=== PATIENT | male | born 2005 | race Caucasian/White ===

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

== ENCOUNTER 2024-01-22 14:30 | Outpatient (RCR) | payer BC, SELFPAY ==
--- NOTE | 2023-12-26 13:22 | HP.PTEVAL_ITS ---
Patient's Visit Information Visit Information Visit Information: MICHELL NOVA is a 18 year old M referred to Physical Therapy by Dr. Higinio Burch MD with a diagnosis of Left Hamstring Strain. Date of Evaluation: 12/26/23 Physical Therapist: Winifred Cosby DPT Visit Plan Frequency: 2x /Week Duration: 4 Weeks Plan: Focus on LE and core strength/stabilization, manual therapy and modalities PRN for left hamstring strain. Initial Tx: cupping, hamstring stretching and isometrics on the hamstring machine Subjective Subjective: Left hamstring strain- playing in a soccer game and he made a turn and tried to sprint and made a couple steps and it tightened up- last weekend. He was not able to keep playing through it. 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 He does not have pain in the hamstring when walking but has pain with increased tension. The pain is located in the middle or closer to the knee. Describes the pain as sharp. Worst: 4/10 Agg: longer strides, going up stairs Eases: stretching, ice Best: 0/10. Sleep: not disturbed. He has not played since. [employer]- will be a [employer]- goes back January 30- fall sport- he has a workout program he is suppose to be doing. He feels that the hamstring is getting better- 50-60%. No summer job. PMHx: left quad, left hamstring, right hamstring, hip flexor- lots of muscle strains. Meds: none Objective Objective: Posture: fair throughout Gait: no deviation noted- no pain with lengthened stride ambulation HR/TR: able without pain Palpation: tender along distal medial hamstring and distal 1/3 hamstring Observation: no bruising Flex: HS: moderate Gastroc: moderate ROM: WNL no pain Strength: Core: fair, Hip: 4+/5 throughout, Knee: Left: Extn: 77 Right: Extn: 88 Left: Flexion: 27 Right Flexion: 46 Balance/Special Test Scores Lower Extremity Functional Score: 64 Goals Goal 1:: Patient will be I with HEP and progression Goal Time Frame: 4-6 Weeks Goal 2:: Patient will run without pain Goal Time Frame: 4-6 Weeks Goal 3:: Patient will have equal strength bilateral Goal Time Frame: 4-6 Weeks Goal 4:: Patient will report 80% improvement Goal Time Frame: 4-6 Weeks Rehabilitation Potential Physical Therapy Diagnosis: Patient presents with a left hamstring strain- he has decreased core and LE strength/stabilization and flex leading to increased pain with ADL's and recreational activities. Rehabilitation Potential: Good Anticipated Interventions Patient/Client Instruction: Educate patient on: Benefits of Fitness Program Therapeutic Exercise to Include: Strength training, Endurance training, Balance training, Coordination, Agility training, Body mechanics, Postural training, Flexibilty training, Gait and locomotor training, Neuromotor development, Passive ROM, Active ROM and Dynamic Lumbar Stabilization Manual Therapy Techniques to Include: Soft tissue mobilization TENS: Yes Other electric stimulation: Yes Cryotherapy (ice pack, ice massage): Yes Thermo therapy (hot pack): Yes Ultrasound (thermal/non thermal): Yes Text: Thank you for the opportunity to evaluate your patient. For Medicare and Medicare HMO plans, please review the plan of care and approve it. It will need to be FAXED BACK to us at [phone] for Medicare purposes. For Medicare only, by signing this I certify the plan of care. Please let me know if there are questions or concerns regarding this plan of care. Physician Signature: Date:
--- NOTE | 2024-01-22 16:03 | HP.PT.NRP ---
Patient Information Patient Information: MICHELL NOVA was seen in my office for initial evaluation on 12/26/23. The following Plan of Care was established for this patient: POC Established Initial Frequency: 2x /Week Initial Duration: 4 Weeks Anticipated Interventions Patient/Client Instruction: Educate patient on: Benefits of Fitness Program Therapeutic Exercise to Include: Strength training, Endurance training, Balance training, Coordination, Agility training, Body mechanics, Postural training, Flexibilty training, Gait and locomotor training, Neuromotor development, Passive ROM, Active ROM and Dynamic Lumbar Stabilization Manual Therapy Techniques to Include: Soft tissue mobilization TENS: Yes Other electric stimulation: Yes Cryotherapy (ice pack, ice massage): Yes Thermo therapy (hot pack): Yes Ultrasound (thermal/non thermal): Yes Last Seen Last Seen: This patient was last seen in our office . Pertinent comments regarding their Physical therapy will appear below: At this point I will be discontinuing this patient from physical therapy. I would be happy to see this patient again in the future if found appropriate by the physician. Thank you! Tony Whatley, PT, ATC Balance/Gait/Functional tests Balance/Special Test Scores Lower Extremity Functional Score: 76
== END 2024-01-22 19:00 | disposition home or self-care (01) ==
LOC: PT 14:30
PROVIDERS: PCP Family Medicine; Referring Provider Family Medicine; Visit Provider Family Medicine
DX: S86.112D Strain of other muscle(s) and tendon(s) of posterior muscle group at lower leg level, left leg, subsequent encounter (principal)
CPT/HCPCS: 97110; 97162; 97530

== ENCOUNTER 2025-06-08 08:52 | Outpatient (CLI) | payer BC, SELFPAY ==
--- NOTE | 2025-06-08 08:53 | RAD_ITS ---
PROCEDURE: KNEE 4 OR MORE VIEWS 06/08/2025 REASON FOR EXAM: RIGHT KNEE SPORTS INJURY TECHNIQUE: Procedure Code: RADKN Modality: DX Procedure: KNEE 4 OR MORE VIEWS FINDINGS: There no acute fractures. There are no dislocations. The joint spaces are well- maintained and the articular surfaces are intact. Bony mineralization is normal. There are no periosteal reactions or aggressive osseous lesions. There are no soft tissue irregularities. RAD/Knee 4 or More Views IMPRESSION: No acute osseous findings. Reading Location: [id number]
--- OUTSIDE RECORDS SUMMARY | 2025-06-08 09:14 | XMS RPT_ITS | CCD ---
Author Organization [facility] Care Team Providers Care Health Director Name Role Phone ANA LILIA, MARILUZ O Unavailable Unavailable REFERRED, SELF Unavailable Unavailable ANA LILIA, MARILUZ O Unavailable Unavailable GASPER HESTER Unavailable Unavailable REFERRED, SELF Unavailable Unavailable ANA LILIA, MARILUZ O Unavailable Unavailable AMANDA GUDELIA Adriana Unavailable Unavailable REFERRED, SELF Unavailable Unavailable ANA LILIA, MARILUZ O Unavailable Unavailable Higinio Burch Referring Unavailable Higinio Burch Attending Unavailable Higinio Burch Primary Care Unavailable Allergies Allergy Classification Reported Allergen(s) Allergy Type Date of Onset Reaction(s) Facility (2 sources) bee venom; Translations: [BEE VENOM] Propensity to adverse reactions to drug (disorder) 7 AOF [facility] Repository Problems Problem Classification Problem Date Documented Da te Episodic/Chronic Sprains and strains (1 source) Strain of muscle, fascia and tendon of the posterior muscle group at thigh level, left thigh, initial encounter; Translations: [Strain of muscle, fascia and tendon of the posterior muscle group at thigh level, left thigh, initial encounter] Onset: 01-23-2024 Episodic Results Test Name Value Interpretation Reference Range Facility Inital Evaluation (1) - PTon 12-26-2023 Inital Evaluation (1) - PT [facility] Physical [facility] [address] [place] [address] / REHABILITATION SERVICES INITIAL EVALUATION MR#: [id number] Acct: [id number] Name: MICHELL NOVA Rep #: [id number] : 2005 18 From: Winifred Cosby DPT Referring Dr.: Dr. Higinio Burch MD Status: REG R CR Insurance: [employer] SELF PAY INSURANCE Patient's Visit Information Visit Information Visit Information: MICHELL NOVA is a 18 year old M referred to Physical Therapy by Dr. Higinio Burch MD with a diagnosis of Left Hamstring Strain. Date of Evaluation: 12/26/23 Physical Therapist: Winifred Cosby DPT Visit Plan Frequency: 2x /Week Duration: 4 Weeks Plan: Focus on LE and core strength/stabilization, manual therapy and modalities PRN for left hamstring strain. Initial Tx: cupping, hamstring stretching and isometrics on the hamstring machine Subjective Subjective: Left hamstring strain- playing in a soccer game and he made a turn and tried to sprint and made a couple steps and it tightened up- last weekend. He was not able to keep playing through it. 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 He does not have pain in the hamstring when walking but has pain with increased tension. The pain is located in the middle or closer to the knee. Describes the pain as sharp. Worst: 4/10 Agg: longer strides, going up stairs Eases: stretching, ice Best: 0/10. Sleep: not disturbed. He has not played since. [employer]- will be a [employer]- goes back January 30- fall sport- he has a workout program he is suppose to be doing. He feels that the hamstring is getting better- 50-60%. No summer job. PMHx: left quad, left hamstring, right hamstring, hip flexor- lots of muscle strains. Meds: none Objective Objective: Posture: fair throughout Gait: no deviation noted- no pain with lengthened stride ambulation HR/TR: able without pain Palpation: tender along distal medial hamstring and distal 1/3 hamstring Observation: no bruising Flex: HS: moderate Gastroc: moderate ROM: WNL no pain Strength: Core: fair, Hip: 4+/5 throughout, Knee: Left: Extn: 77 Right: Extn: 88 Left: Flexion: 27 Right Flexion: 46 Balance/Special Test Scores Lower Extremity Functional Score: 64 Goals Goal 1:: Patient will be I with HEP and progression Goal Time Frame: 4-6 Weeks Goal 2:: Patient will run without pain Goal Time Frame: 4-6 Weeks Goal 3:: Patient will have equal strength bilateral Goal Time Frame: 4-6 Weeks Goal 4:: Patient will report 80% improvement Goal Time Frame: 4-6 Weeks Rehabilitation Potential Physical Therapy Diagnosis: Patient presents with a left hamstring strain- he has decreased core and LE strength/stabilization and flex leading to increased pain with ADL's and recreational activities. Rehabilitation Potential: Good Anticipated Interventions Patient/Client Instruction: Educate patient on: Benefits of Fitness Program Therapeutic Exercise to Include: Strength training, Endurance training, Balance training, Coordination, Agility training, Body mechanics, Postural training, Flexibilty training, Gait and locomotor training, Neuromotor development, Passive ROM, Active ROM and Dynamic Lumbar Stabilization Manual Therapy Techniques to Include: Soft tissue mobilization TENS: Yes Other electric stimulation: Yes Cryotherapy (ice pack, ice massage): Yes Thermo therapy (hot pack): Yes Ultrasound (thermal/non thermal): Yes Text: Thank you for the opportunity to evaluate your patient. For Medicare and Medicare HMO plans, please review the plan of care and approve it. It will need to be FAXED BACK to us at [phone] for Medicare purposes. For Medicare only, by signing this I certify the plan of care. Please let me know if there are questions or concerns regarding this plan of care. Physician Signature: D ate: 12/26/23 1322 CC: Dr. Higinio Burch MD ELR Signed Normal [facility] Blood hemoglobin measurement (mass/volume)on 01-17-2022 Hemoglobin (Bld) [Mass/Vol] 15.2 g/dL 13.0-16.5 [facility] Work Phone: Hematocrit Auto (Bld) [Volum e fraction]on 01-17-2022 Hematocrit (Bld) [Volume fraction] 45.6 % 36-47 [facility] Work Phone: Hemoglobin S Solubility test Ql (Bld)on 01-17-2022 Hemoglobin S Ql (Bld) Negative Negative [facility] Work Phone: Comment on above: Since a variety of c onditions and other abnormalhemoglobins in addition to Hemoglobin S may give false-positive results, positive Hemoglobin Solubility testsshould be confirmed by hemoglobin fractionation testing.Performed at: [address] [id number] Director: Yfn Wheeler PhD, Phone: [phone] Progress Noteon 02-11-2018 Senior Compliance Officer Authentication Interface Message Text Patient ID: Michell Nova is a 12 y.o. male. His chief complaint(s)include: Knee Pain (left)Assessment1. [place]-Schlatter's disease, leftLazaro was seen today for knee pain.Diagnoses and all orders for this visit:[place]-Schlatter's disease, leftReturn if symptoms worsen or fail to improve.Discussed getting patellar tendon strap to help with symptoms- should wear forsports and any activity that aggravates the pain. Will continue ice and useNSAIDs as needed. Discussed may develop symptoms on the right as well. Giveninformation about Heidi Schlatter disease.SubjectiveHPI Comments: Left knee pain x 1 week-hurts when he is using it. Hurts a lotwith running, a little with marching in band. No specific injury noted. Hurtsjust below knee. No swelling, no redness. 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 No medications given.Has been growing a lot recently.He is accompanied by his mother.Knee PainThe onset has been acute. The duration has been 1 week. Mechanism of injurydid not include: sports injury. Pain is aggravated by physical activity andwalking/running.Associated symptoms do not include swelling, joint swelling, painful ROM,decreased ROM, erythema, warmth, bruising, laceration/abrasion,popping/cl icking, numbness/tingling, muscle weakness, stiffness and instability.Prior management include(s) ice. There have been no prior visits.There have been no previous diagnostic tests.Primary Care Review of SystemsObjectiveVital Signs 02/11/18 1347Temp: 37.7 C (99.8 F)TempSrc: TemporalWeight: 68.8 kgThere is no height or weight on file to calculate BMI.Physical ExamConstitutional: He appears well. He is active. No distress.HENT:Head: Atraumatic.Mouth/Throat: Mucous membranes are moist.Eyes: Conjunctivae are normal.Neck: Normal range of motion. Neck supple.Cardiovascular: Normal rate and regular rhythm. Pulses are palpable.No murmur heard.Pulmonary/Chest: Effort normal and breath sounds normal. There is normal airentry. No respiratory distress. He has no wheezes. He has no rhonchi. He has emilia.Musculoskeletal:Tender to palpation over left tibial tuberosity. No edema or erythema noted. Noother tenderness to palpation. Full ROM of left knee - mild pain with fullflexion, otherwise not painful. Normal strength. Negative varus stress, valgusstress, anterior and posterior drawer, and Chinedu's testing.Neurological: He is alert. He has normal strength. He exhibits normal muscletone. Gait normal.Skin: Capillary refill takes less than 3 seconds. No rash noted. Skin is warm. Normal [facility] Progress Noteon 10-03-2017 Senior Compliance Officer Authentication Interface Message Text Patient ID: Michell Nova is a 12 y.o. male. His chief complaint(s) include:Otalgia (right; was at a water park [place] weekend[place] [facility]Assessment:1. Acute otitis externa of right ear, unspecified typePlan:Michell was seen today for otalgia.Diagnoses and all orders for this visit:Acute otitis externa of right ear, unspecified type- [id number], OTIC, (CORTISPORIN) 1 % otic solution; instill 4Drops into the right ear 3 times daily for 7 daysRecommended d/c Augmentin. Can give tylenol or motrin as directed forfever/pain. Follow up if needed.Subjective:HPI Comments: Went to urgent care 3 days ago. Diagnosed with right otitis media.Prescribed Augmentin.He is accompanied by his mother.Ear ProblemsThe onset has been acute. The duration has been 4 days. The course isunchanging.The patient's symptoms have included ear pain. The patient's symptoms haveincluded no ear drainage. These symptoms occur in the right ear. The patient'sassociated symptoms have included no fever, no congestion and no rhinorrhea. Thepatient has been swimming recently.The patient has been exposed to no sick contacts. The patient's past medicalhistory is negative for no ear tubes and no current ear tubes.Review of SystemsHENT: Positive for ear pain.Objective:Physical ExamConstitutional: He appears well. No distress.HENT:Head: Atraumatic.Right Ear: Tympanic membrane normal.Left Ear: Tympanic membrane normal.Nose: No nasal discharge.Mouth/Throat: Throat is not red. Mucous membranes are moist.Eyes: Conjunctivae are normal. Right eyelid exhibits no discharge. Left eyelidexhibits no discharge.Cardiovascular: Normal rate and regular rhythm.No murmur heard.Pulmonary/Chest: Breath sounds normal. There is normal air entry. No stridor. Norespiratory distress. Air movement is not decreased. He has no wheezes. He hasno rhonchi. He has no rales. Exhibits no retraction.Neurological: He is alert. Normal [facility] 09-30-2017 [facility] Office Visit (UCWSTR) MICHELL SANTIAGO ([id number]) 1 MDate Time Provider Department09/30/17 7:00 PM HAZEL ARCE (RAZA) [facility] During your visit today, we recorded the following information about you: Temperature Pulse Respiration Weight 98 degrees 68/minute 16/minute 69.9 kgHazel Arce APRN.CNP 09/30/2017 7:13 PM SignedASSESSMENT/PLAN:1. Right acute suppurative otitis media - ICD9: 382.00, ICD10: H66.001- Will begin treatment with Augmentin 875 mg PO BID for 10 days- The patient should also be given warm salt water gargles, throat lozengesand/or OTC throat spray as needed for the first 5-7 days of treatment.- Supportive care with plenty of fluids, rest, and analgesia prn.- Follow up in one week if symptoms persist or worsen.- GO TO THE ER IF:1. You have a severe headache or pain around the ear.2. You notice swelling around the ear.3. You have a seizure (convulsion), twitching of the facial muscles, or passesout.4. You are dizzy, have a stiff neck, or cannot walk or talk normally.You can take an OTC probiotic such as Culturelle or Align to help with stomachupset/loose stool that you may get as a side effect of the antibiotic.* Seek medical care immediately, call 911, go to ER if you have chest pain,difficulty breathing, shortness of breath, inability to swallow.- AMOXICILLIN 600 MG-POTASSIUM CLAVULANATE 42.9 MG/5 ML ORAL SUSPENSIONHazel Arce, DIGITAL ASSISTANT.METALIZING MACHINE OPERATOR 09/30/2017 7:20 PM AddendumSubjectiveThe history is provided by the patient and the father. No language interpreterwas used.HPI Michell Nova is a 12 year old male who presents today with his fatherfor CC of right ear pain This started yesterday and worsened gradually todayHe denies fever or congestion Symptoms are worsened by nothing He has triedno treatment or medications. [facility].Pulse 68 Temp 36.7 ?C (98 ?F) (Left Tympanic) Resp 16 Wt 69.9 kg (154 lb)ALLERGIESNo Known AllergiesThere is no problem list on file for this patient.No family history on file.Social History Marital status: Single Spouse name: Years of education: Number of children:Social History Main Topics Smoking status: Never Smoker Smokeless status: Never Used Drug use: NoReview of SystemsConstitutional: Negative. Negative for chills, fever and malaise/fatigue.HENT: Positive for ear pain. Negative for congestion, sinus pain and sorethroat.Respiratory: Negative for cough, sputum production, shortness of breath andwheezing.Cardiovascular: Negative for chest pain.Musculoskeletal: Negative for myalgias.Skin: Negative for rash.Neurological: Negative for headaches.ObjectivePhysical ExamConstitutional: He is oriented to person, place, and time and well-developed,well-nourished, and in no distress.HENT:Head: Normocephalic and atraumatic.Right Ear: External ear and ear canal normal. Tympanic membrane is erythematousand retracted. Tympanic membrane is not injected and not bulging. A middle eareffusion (suppurative) is present.Left Ear: Tympanic membrane, external ear and ear canal normal. Tympanicmembrane is not injected, not erythematous, not retracted and not bulging. Nomiddle ear effusion.Nose: Nose normal. Right sinus exhibits no maxillary sinus tenderness and nofrontal sinus tenderness. Left sinus exhibits no maxillary sinus tenderness andno frontal sinus tenderness.Mouth/Throat: Uvula is midline, oropharynx is clear and moist and mucousmembranes are normal. No oropharyngeal exudate, posterior oropharyngeal edema,posterior oropharyngeal erythema or tonsillar abscesses.Eyes: Conjunctivae and EOM are normal. Pupils are equal, round, and reactive tolight.Neck: Normal range of motion. Neck supple.Cardiovascular: Normal rate, regular rhythm and normal heart sounds.Pulmonary/Chest: Effort normal and breath sounds normal.Lymphadenopathy: Head (right side): No submental, no submandibular, no tonsillar, nopreauricular and no posterior auricular adenopathy present. Head (left side): No submental, no submandibular, no tonsillar, nopreauricular and no posterior auricular adenopathy present. He has no cervical adenopathy. Right: No supraclavicular adenopathy present. Left: No supraclavicular adenopathy present.Neurological: He is alert and oriented to person, place, and time.Skin: Skin is warm and dry.Psychiatric: Affect normal.Nursing note and vitals reviewed.ASSESSMENT/PLAN:1. Right acute suppurative otitis media - ICD9: 382.00, ICD10: H66.001- Will begin treatment with Augmentin 875 mg PO BID for 10 days- The patient should also be given warm salt water gargles, throat lozengesand/or OTC throat spray as needed for the first 5-7 days of treatment.- Supportive care with plenty of fluids, rest, and analgesia prn.- Follow up in one week if symptoms persist or worsen.- GO TO THE ER IF:1. You have a severe headache or pain around the ear.2. You notice swelling around the ear.3. You have a seizure (convulsion), twitching of the facial muscles, or passesout.4. You are dizzy, have a stiff neck, or cannot walk or talk normally.You can take an OTC probiotic such as Culturelle or Align to help with stomachupset/loose stool that you may get as a side effect of the antibiotic.* Seek medical care immediately, call 911, go to ER if you have chest pain,difficulty breathing, shortness of breath, inability to swallow.- AMOXICILLIN 600 MG-POTASSIUM CLAVULANATE 42.9 MG/5 ML ORAL SUSPENSIONDiagnosis and treatment plan were discussed and questions were answered to thepatient's satisfaction. Pt acknowledged understanding of concepts and follow upplan.Specific signs and symptoms that would indicate the need for higher level ofcare were discussed in detail warranting prompt ER evaluation.Hazel Arce APRN.CNPReferring Provider: SELF [[id number]]Allergies As of Date: 09/30/2017(No Known Allergies)Date Reviewed: 09/30/2017Reviewed by: Hazel Arce - Fully AssessedReason for Visit: Ear Pain [817] Cmt: Right ear pain since yesterdayPrimary Visit Diagnosis:Right acute suppurative otitis media [H66.001]Order(s):amoxicillin- clavulanate (AUGMENTIN) 600-42.9 mg/5 mL suspensionTake 7.5 mL by mouth twice daily for 10 days.Disp: 150 mLRfl: 0Prescriptions as of 09/30/2017 Sig: AMOXICILLIN 600 MG-POTASSIUM * Take 7.5 mL by mouth twice da* EPINEPHRINE 0.3 MG/0.3 ML INJ* Inject 0.3 mg intramuscularly*Medication notes this encounter EPINEPHRINE 0.3 MG/0.3 ML INJECTION, AUTO-INJECTOR >> Ara Solares LPN 09/30/2017 7:00 PM >> ARA SOLARES LPN SatSep 30, 2017 7:00 PM Not usingProblem List As Of Date: 09/30/2017(None) Other instructions from your clinician: ASSESSMENT/PLAN: 1. Right acute suppurative otitis media - ICD9: 382.00, ICD10: H66.001 - Will begin treatment with Augmentin 875 mg PO BID for 10 days - The patient should also be given warm salt water gargles, throat lozenges and/or OTC throat spray as needed for the first 5-7 days of treatment. - Supportive care with plenty of fluids, rest, and analgesia prn. - Follow up in one week if symptoms persist or worsen. - GO TO THE ER IF: 1. You have a severe headache or pain around the ear. 2. You notice swelling around the ear. 3. You have a seizure (convulsion), twitching of the facial muscles, or passes out. 4. You are dizzy, have a stiff neck, or cannot walk or talk normally. You can take an OTC probiotic such as Culturelle or Align to help with stomach upset/loose stool that you may get as a side effect of the antibiotic. * Seek medical care immediately, call 911, go to ER if you have chest pain, difficulty breathing, shortness of breath, inability to swallow. - AMOXICILLIN 600 MG-POTASSIUM CLAVULANATE 42.9 MG/5 ML ORAL SUSPENSIONPrescriptions ordered this encounter Disp Refills Start End AMOXICILLIN 600 MG-POTASSIUM CLAVULA* 150 * 0 09/30/2017 10/10/2017 Route: ORAL Sig: Take 7.5 mL by mouth twice daily for 10 days. Status:Closed by HAZEL ARCE CNP on 09/30/17 [facility] PROGRESSon 09-30-2017 PROGRESS HNO ID: [id number] thor: Hazel (Raza) FulkService: (none)Author Type: Nurse PractitionerType: Progress NotesFiled: 09/30/2017 7:20 PMNote Text:SubjectiveThe history is provided by the patient and the father. No languageinterpreter was used.HPI Michell Nova is a 12 year old male who presents today with hisfather for CC of right ear pain This started yesterday and worsenedgradually today He denies fever or congestion Symptoms are worsened bynothing He has tried no treatment or medications. Risk factors [facility]this [facility] Previous AOM.Pulse 68 Temp 36.7 ?C (98 ?F) (Left Tympanic) Resp 16 Wt 69.9 kg(154 lb)ALLERGIESNo Known AllergiesThere is no problem list on file for this patient.No family history on file.Social History Marital status: Single Spouse name: Years of education: Number of children:Social History Main Topics Smoking status: Never Smoker Smokeless status: Never Used Drug use: NoReview of SystemsConstitutional: Negative. Negative for chills, fever and malaise/fatigue.HENT: Positive for ear pain. Negative for congestion, sinus pain and sorethroat.Respiratory: Negative for cough, sputum production, shortness of breathand wheezing.Cardiovascular: Negative for chest pain.Musculoskeletal: Negative for myalgias.Skin: Negative for rash.Neurological: Negative for headaches.ObjectivePhysical ExamConstitutional: He is oriented to person, place, and time andwell-developed, well-nourished, and in no distress.HENT:Head: Normocephalic and atraumatic.Right Ear: External ear and ear canal normal. Tympanic membrane iserythematous and retracted. Tympanic membrane is not injected and notbulging. A middle ear effusion (suppurative) is present.Left Ear: Tympanic membrane, external ear and ear canal normal. Tympanicmembrane is not injected, not erythematous, not retracted and not bulging. No middle ear effusion.Nose: Nose normal. Right sinus exhibits no maxillary sinus tenderness andno frontal sinus tenderness. Left sinus exhibits no maxillary sinustenderness and no frontal sinus tenderness.Mouth/Throat: Uvula is midline, oropharynx is clear and moist and mucousmembranes are normal. No oropharyngeal exudate, posterior oropharyngealedema, posterior oropharyngeal erythema or tonsillar abscesses.Eyes: Conjunctivae and EOM are normal. Pupils are equal, round, andreactive to light.Neck: Normal range of motion. Neck supple.Cardiovascular: Normal rate, regular rhythm and normal heart sounds.Pulmonary/Chest: Effort normal and breath sounds normal.Lymphadenopathy: Head (right side): No submental, no submandibular, no tonsillar, nopreauricular and no posterior auricular adenopathy present. Head (left side): No submental, no submandibular, no tonsillar, nopreauricular and no posterior auricular adenopathy present. He has no cervical adenopathy. Right: No supraclavicular adenopathy present. Left: No supraclavicular adenopathy present.Neurological: He is alert and oriented to person, place, and time.Skin: Skin is warm and dry.Psychiatric: Affect normal.Nursing note and vitals reviewed.ASSESSMENT/PLAN:1. Right acute suppurative otitis media - ICD9: 382.00, ICD10: H66.001- Will begin treatment with Augmentin 875 mg PO BID for 10 days- The patient should also be given warm salt water gargles, throatlozenges and/or OTC throat spray as needed for the first 5-7 days oftreatment.- Supportive care with plenty of fluids, rest, and analgesia prn.- Follow up in one week if symptoms persist or worsen.- GO TO THE ER IF:1. You have a severe headache or pain around the ear.2. You notice swelling around the ear.3. You have a seizure (convulsion), twitching of the facial muscles, orpasses out.4. You are dizzy, have a stiff neck, or cannot walk or talk normally.You can take an OTC probiotic such as Culturelle or Align to help withstomach upset/loose stool that you may get as a side effect of theantibiotic.* Seek medical care immediately, call 911, go to ER if you have chestpain, difficulty breathing, shortness of breath, inability to swallow.- AMOXICILLIN 600 MG-POTASSIUM CLAVULANATE 42.9 MG/5 ML ORAL SUSPENSIONDiagnosis and treatment plan were discussed and questions were answered tothe patient's satisfaction. Pt acknowledged understanding of concepts andfollow up plan.Specific signs and symptoms that would indicate the need for higher levelof care were discussed in detail warranting prompt ER evaluation.Hazel Arce APRN.METALIZING MACHINE OPERATOR Normal [facility] Progress Noteon 08-26-2017 Senior Compliance Officer Authentication Interface Message Text Patient ID: Michell Nova is a 12 y.o. male. His chief complaint(s) include:12 YEAR WELL CHILD.Assessment:1. Encounter for routine child health examination without abnormal findings2. Exercise counseling3. Encounter for dietary counseling and surveillance4. StutteringPlan:Michell was seen today for 12 year well child.Diagnoses and all orders for this visit:Encounter for routine child health examination without abnormal findings- Behavioral/Emotional Assessment w Score - PHQ-9Exercise counselingEncounter for dietary counseling and surveillanceStutteringDoing well.Stutter - had many yrs of speech therapy and eventually released. They do notwant more therapy.Return in about 1 year (around 08/26/2018) for well check.Subjective:HPI Comments: Good health, and no current illness at this time.No injuries. He is a runner in track, and also plays soccer.He is accompanied by his father.12 YEAR WELL CHILDHome:Michell eats meals with family, has an adult to turn to for help and is permittedand able to make independent decisions.Education:He Is in 8th grade and is doing well. (S)Eating:Michell eats regular meals including fruits and vegetables, eats breakfast,limits fast food and has a calcium source.Activities & Sports:He plays competitive sports (track) and participates in music programs([employer]).Drugs:He does not use tobacco, does not use drugs and does not use alcohol.Safety:He uses seat belt.Sex:Michell is not sexually active. Suicidality:He has no depression and has no suicidal ideation.OutputUrine and Stool Pattern:Urine and Stool Pattern: no Normal stool pattern, no normal urine pattern.SleepSleeping Difficulty: no difficulty sleepingHours of sleep at a time: [facility] events information was reviewed-no referral neededHearing Vision Concerns:The caregiver has no concerns about the patient's hearing.The caregiver has no concerns about the patient's vision.Primary Care Review of SystemsObjective:Physical ExamConstitutional: He appears well. He is active. No distress.HENT:Head: Atraumatic.Right Ear: Tympanic membrane and external ear normal.Left Ear: Tympanic membrane and external ear normal.Nose: Nose normal.Mouth/Throat: Mucous membranes are moist. Dentition is normal. Oropharynx isclear.Eyes: Conjunctivae and EOM are normal. No strabismus. Pupils are equal, round,and reactive to light.Neck: Normal range of motion. Neck supple. Thyroid normal. No neck adenopathy.Cardiovascular: Normal rate, regular rhythm, S1 normal and S2 normal. Pulsesare palpable.No murmur heard.Pulmonary/Chest: Breath sounds normal. No respiratory distress. Exhibits nodeformity.Abdominal: Soft. Bowel sounds are normal. He exhibits no distension and no mass.There is no hepatosplenomegaly. There is no tenderness.Genitourinary: Testes normal and penis normal. No inguinal hernia noted.Musculoskeletal: Normal range of motion. Back: He exhibits no scoliosis.Neurological: He is alert. He has normal strength. He exhibits normal muscletone. Gait normal.Skin: No rash noted. No pallor. Skin is warm. Normal [facility] Encounters Encounter Date Encounter Type Care Provider Facility Start: 01-22-2024 End: 01-22-2024 ambulatory Higinio Burch Facility:[facility] Start: 12-24-2022 End: 12-24-2022 ambulatory [facility] Work Phone: Start: 12-24-2022 End: 12-24-2022 Discharged Recurring [facility] Work Phone: Start: 01-17-2022 End: 01-17-2022 Patient encounter procedure [facility] Start: 02-11-2018 End: 02-11-2018 Patient encounter GUDELIA Adriana PATEL [facility] Start: 10-03-2017 End: 10-03-2017 Patient encounter GASPER Wright KACIE [facility] Start: 09-30-2017 End: 10-01-2017 Ambulatory [facility] Start: 08-26-2017 End: 08-26-2017 Patient encounter MARILUZ Santo SUNG [facility] Payers Date Payer Category Payer Self-pay [id number] 2022 Unknown [id number] Private Health Insurance [id number] Unknown [id number] Social History Date Type [facility]ail [facility] Work Phone: Start: 2005 Sex Assigned At Male W [facility] Start: 10-22-2022 [facility] Discharge summary 12-24-2022 Note Date & Type Note Facility 12-24-2022 Discharge summary Note Date/Time December 24, 2022 10:49am [facility] Physical Therapy [facility] [address] [place] [address] / REHABILITATION SERVICES DISCHARGE SUMMARY MR#: [id number] Acct: [id number] Name: MICHELL NOVA Rep #: [id number] 04 : 2005 17 From: Higinio Leblanc DPT, LEX, CSCS Referring Dr.: Dr. Higinio Burch MD Status: REG RCR Insurance: [email or web address] SELF PAY INSURANCE Discharge Summary D/C summary: It has been my pleasure to treat MICHELL NOAV referred by Dr. Higinio Burch MD, with the diagnosis of L quad strain. for a total of 10 visit(s). Discharge Date: 12/24/22 Please see the following information for a summary of their discharge status. Subjective Subjective: Doing well. 100%, played game yesterday at 100%. Doing 4 day per week college fitness and strength with no problems. Pain L quad: Pain Intensity (Out of 10): 0 Overall Improvement % Improvement: 100 Objective Objective/Function: Full sprint without pain or [id number]. Single leg hop pand bounding with no problems. cutting and changing directions easily and fully. No tenderness in L quad or HS, full contraction without pain. Life normal for patient including soccer training and playing this summer. Goals Goal 1:: sprint without pain 15 seconds 4x Goal Progress: Goal Met Goal 2:: I appropriat emanagement with stretching and warm up Goal Progress: Goal Met Goal 3:: Pt play soccer game without increased pain Goal Progress: Goal Met Goal 4:: 80 on LEFS Goal Progress: Goal Met Plan Plan: d/c D/C Information d/c sentence: If there are questions or concerns regarding this patient's physical therapy, please feel free to call me at [phone]. Thank you for the referral of thispatient. Sincerely, Higinio Leblanc DPT, OCS, CSCS Balance/Gait/Functional tests Balance/Special Test Scores Lower Extremity Functional Score: 80 <Electronically signed by Higinio Leblanc DPT, LEX, CSCS> 12/24/22 1048 CC: Dr. Higinio Burch MD ~ EBG Signed [facility] Work Phone: Evaluation note Note Date & Type Note Facility Evaluation note No assessment information availa ble [facility] Work Phone: Summary Purpose Family History No Family History Records FoundNo Family History Records FoundNo Family History Records Found Advance Directives No Advanced Directives Records FoundNo Advanced Directives Records FoundNo Advanced Directives Records Found Chief Complaint and Reason for Visit Chief Complaint E ORDER Chief Complaint QUADRICEP STRAIN RX HERE Additional Source Comments (unrecognized sect ion and content) No Status Records FoundNo Status Records FoundNo Status Records Found INFORMATION SOURCE (unrecogn ized section and content) DATE CREATED AUTHOR 12/05/2017 [facility] DATE CREATED AUTHOR AUTHOR'S ORGANIZ ATION 02/14/2018 [facility] DATE CREATED AUTHOR AUTHOR'S ORGANIZ ATION 01/25/2024 [facility] Goals (unrecognized section and content) Goals may be documented in a n alternate sectionGoals may be documented in an alternate section Care Teams (unrecognized sec tion and content) Team Status: Active Member Role Status Dates Dr. Mariluz Sung MD Family Provider Active Dr. Higinio Burch MD Primary Care Provider Active Team Status: Inactive Member Role Status Dates Dr. Higinio Burch MD Primary Care Provide r, Attending Provider, Referring Provider Active FOR RECORDS PERTAINING TO PATIENTS WHO ARE OR HAVE BEEN ENROLLED IN A CHEMICAL DEPENDENCY/SUBSTANCEABUSE PROGRAM, SOME INFORMATION MAY BE OMITTED. This clinical summary was aggregated from multiple sources. Caution should be exercised in using it in the provision of clinical care. This summary normalizes information from multiple sources, and as a consequence, information in this document may materially change the coding, format and clinical context of patient data. In addition, data may be omitted in some cases. CLINICAL DECISIONS SHOULD BE BASED ON THE PRIMARY CLINICAL RECORDS. [employer] provides no warranty or guarantee of the accuracy or completeness of information in this document.
== END 2025-06-08 23:59 | disposition home or self-care (01) ==
LOC: MTRAD 08:53
PROVIDERS: PCP Family Medicine; Referring Provider Family Medicine; Visit Provider Family Medicine
DX: M25.561 Pain in right knee (principal)
CPT/HCPCS: 73564